=== PATIENT | female | born 1965 | race Caucasian/White ===

== ENCOUNTER → 2018-09-25 | Outpatient (CLI) | payer MEDICARE, MEDICAID ==
[~2018-09-25] MED LIST: REGADENOSON 0.4 MG/5 ML DISP.SYRIN. IV ONE
--- NOTE | 2018-09-25 11:20 | CARD ---
MR#: [id number] Date of Study: 09/25/2018 Ordering Physician: ANIA ROMERO, Referring Physician: ANIA ROMERO Tech: Vannessa Wang RDCS APPROVED REPORT EXAM: Two-dimensional and M-mode echocardiogram with Doppler and color Doppler. Other Information Quality : Good INDICATION Aortic Valve Disease History of CVA Surgery/Intervention Status/Post Aortic Valve Replacement: Mechanical Date: 2010 2D DIMENSIONS RVDd2.8 (2.9-3.5cm)Left Atrium(2D)3.8 (1.6-4.0cm) IVSd1.0 (0.7-1.1cm)Aortic Root(2D)2.3 (2.0-3.7cm) LVDd4.6 (3.9-5.9cm)LVOT Diameter2.0 (1.8-2.4cm) PWd0.9 (0.7-1.1cm)LVDs2.4 (2.5-4.0cm) FS (%) 30.0 %SV77.3 ml LVEF(%)60.0 (>50%) Aortic Valve AoV Peak Will.270.2cm/sAoV VTI66.6cm AO Peak GR.29.2mmHgLVOT Peak Will.143.5cm/s AO Mean GR.17mmHgAVA (VMAX)1.74cm2 SABA (VTI)2.50bf4RS P 1/2 Bmnf270sl Mitral Valve MV E Uwgkskmm377.9cm/sMV DECEL FPKV457cd MV A Swhelewm94.9cm/sE/A Ratio1.8 Tricuspid Valve TR P. Shpztwdo208br/sRAP LVDDYBUX3loLh TR Peak Gr.41qaWgQWCG85uuGv Pulmonary Vein S1 Dyexducx14.9cm/sD2 Cufdyyct27.7cm/s LEFT VENTRICLE The left ventricle is normal size. There is normal left ventricular wall thickness. The left ventricu lar systolic function is normal. The Ejection Fraction is 55-60%. There is normal LV segmental wall m otion. Transmitral Doppler flow pattern is Grade II-pseudonormal filling dynamics. RIGHT VENTRICLE The right ventricle is normal size. The right ventricular systolic function is normal. ATRIA The left atrium size is normal. The right atrium size is normal. The interatrial septum is intact wit h no evidence for an atrial septal defect or patent foramen ovale as noted on 2-D or Doppler imaging. AORTIC VALVE The aortic valve is not well visualized. Doppler and Color Flow revealed mild aortic regurgitation. C alculated aortic valve area is 2.0 cm2 with maximum pressure gradient of 29 mmHg and mean pressure gr adient of 17 mmHg. There is a mechanical aortic valve prosthesis. MITRAL VALVE The mitral valve is calcified but opens well. There is no evidence of mitral valve prolapse. There is no mitral valve stenosis. Doppler and Color-flow revealed mild mitral regurgitation. TRICUSPID VALVE The tricuspid valve is normal in structure and function. Doppler and Color Flow revealed trace tricus pid regurgitation. There is mild pulmonary hypertension. The PA pressure was estimated at 34 mmHg. Th ere is no tricuspid valve stenosis. PULMONIC VALVE The pulmonic valve is not well visualized. Doppler and Color Flow revealed trace to mild pulmonic adilson vular regurgitation. There is no pulmonic valvular stenosis. GREAT VESSELS The aortic root is normal in size. The ascending aorta is not well seen. The IVC is normal in size an d collapses >50% with inspiration. PERICARDIAL EFFUSION There is no evidence of significant pericardial effusion. Critical Notification Critical Value: No <Conclusion> The left ventricular systolic function is normal. The Ejection Fraction is 55-60%. There is normal LV segmental wall motion. Transmitral Doppler flow pattern is Grade II-pseudonormal filling dynamics. Mechanical aortic valve prosthesis appears well seated and functioning well. Mean pressure gradient o f 17 mmHg. Mild aortic regurgitation. Mild mitral regurgitation. Trace tricuspid regurgitation. The PA pressure was estimated at 34 mmHg. There is no evidence of significant pericardial effusion. Signed by : Ania Romero, Electronically Approved : 09/25/2018 11:19:47
--- NOTE | 2018-09-25 13:54 | RAD ---
MR#: [id number] Date of Study: 09/25/2018 Ordering Physician: ANIA ROMERO Referring Physician: REFUGIO GOMEZ Tech: RT Darren Shah) (N) APPROVED REPORT Test Type: Pharmacological Stress Nurse/Tech: Shayy Alston R.N. Test Indications: Aortic valve repair-[facility] Cardiac History: valve repair,htn,murmur,CVA Medications: See Electronic Medical Record Medical History: See Electronic Medical Record Resting ECG: SB w/bbb. Resting Heart Rate: 45 bpm Resting Blood Pressure: 105/43mmHg Pretest Chest Pain: No chest pain Nurse/Tech Notes S1S2, has loud click from valve replacement and faint murmur Consent: The procedure was explained to the patient in lay terms. Informed consent was witnessed. John eout was entered into [employer]. History and Stress Test performed by RT Darren Shah) (N) Pharm. Details Pharmacologic stress testing was performed using 0.4mg per 5ml of regadenoson given intravenously ove r 7-10 seconds. Stress Symptoms slight SOB POST EXERCISE Reason for Termination: Infusion complete Max HR: 68 bpm Max Blood Pressure: 105/36mmHg Blood Pressure response to exercise: b/p up and down repeatedly Heart Rate response to exercise: wnl Chest Pain: No. Arrhythmia: No. ST Change: No. INTERPRETATION Stress EKG Conclusion: Baseline EKG showed sinus rhythm. No ischemic changes at peak stress. No arr hythmias. Imaging Protocol IMAGE PROTOCOL: Rest Tc-99m/stress Tc-99m 1 day Rest: Stress: Viability: Radiopharm.Tc99m NqlxpiavjYw27s Sestamibi Fayy79iZb 33mCi Duration 15min. 15min. Img Date 09/25/2018 09/25/2018 Inj-Img Hswu27lpk. 60min. Rest Admin Site:IV - Right HandAdministrator:RT Darren Shah)(N) Stress Admin Site: IV - Right HandAdministrator: KANCHAN Edwards STRESS DATA End Diast. Vol.102.0mlLVEDV index BSA51.0ml End Syst. Vol.23.0mlLVESV index BSA12.0ml Myocardial Wyly553.0gEject. Xmwlxhfw13.0% Stress Scores Regional WT0.00Summed WT0.00 Regional WM0.00Summed WM0.00 Study quality was good. Left Ventricular size was Normal at Rest and Stress. Lung uptake was . Left Ventricular ejection fraction is 77%. The rest and stress images show normal perfusion, normal contraction and thickening. LV Perf. Quant 17 Seg. SSS1.00 17 Seg. SRS0.00 17 Seg. SDS1.00 Stress Defect Extent (% LAD)0.00Rest Defect Extent (% LAD)0.00Rev. Defect Extent (% LAD)0.00 Stress Defect Extent (% LCX) 0.00Rest Defect Extent (% LCX)0.00Rev. Defect Extent (% LCX)0.00 Stress Defect Extent (% RCA)0.00Rest Defect Extent (% RCA)0.00Rev. Defect Extent (% RCA)0.00 Stress Defect Extent (% VICENTA)0.00Rest Defect Extent (% VICENTA)0.00Rev. Defect Extent (% VICENTA)0.00 Conclusion 1. Regadenoson cardioisotope stress test did not show any evidence of ischemia or infarct. 2. Normal left ventricular systolic function with ejection fraction calculated at 77%. 3. Low risk for cardiac events. Signed by : Ania Romero, Electronically Approved : 09/25/2018 13:54:27
== END | disposition home or self-care (01) ==
LOC: NM 09:13
PROVIDERS: ATTEND Internal Medicine Cardiovascular Disease
DX: I08.8 Other rheumatic multiple valve diseases (principal); I10 Essential (primary) hypertension; Z95.4 Presence of other heart-valve replacement; Z86.73 Personal history of transient ischemic attack (TIA), and cerebral infarction without residual deficits; I27.20 Pulmonary hypertension, unspecified
CPT/HCPCS: 78452; 93017; 93306; A9500; J2785

== ENCOUNTER → 2020-10-01 | Outpatient (CLI) | payer MEDICARE, MEDICAID ==
[2020-04-07 10:38] VITALS: BP 116/40
[~2020-10-01] MED LIST changes: +ATOR40TA59 PO; +BUDE10.2 IH; +BUSP15TA PO; +CYCL10TA2 PO; +METO-239 PO; -REGADENOSON 0.4 MG/5 ML DISP.SYRIN. IV ONE; +SERT-268 PO; +TRAZ-123 PO; +VENTOLIN HFA18 GM INH
--- NOTE | 2020-10-01 17:22 | KCIC ---
EXAM: LEFT SHOULDER 3 VIEWS. HISTORY: Left shoulder pain, fall. COMPARISON: None. FINDINGS: No fractures are identified. Glenohumeral joint spaces and alignment are maintained. Acromi oclavicular osteoarthritis is mild for patient age. Tiny inferiorly directed clavicular spurs measure <2 mm. There are changes of median sternotomy and aortic valve repair. A 1.7 cm calcification projecting ove r the left axilla may be a calcified lymph node, versus a calcified left breast fibroadenoma. IMPRESSION: 1. Mild left acromioclavicular osteoarthritis. Electronically signed by: Randee Briscoe MD (10/01/2020 5:20 PM) [id number]
== END ==
LOC: KCIC 13:58
PROVIDERS: ATTEND Internal Medicine
DX: M19.012 Primary osteoarthritis, left shoulder (principal)
CPT/HCPCS: 73030

== ENCOUNTER 2021-04-25 15:34 | Inpatient (IN) | payer MEDICARE, MEDICAID ==
[~2021-04-25] VITALS: Ht 175.3 cm; Wt 91.6 kg
[~2021-04-25 15:34] MED LIST changes: +CYCL10TA19 PO; -CYCL10TA2 PO
[2021-04-25] MEDS ORDERED: HYDROcodone/APAP 5/325MG 1 TAB TABLET PO ONE (19:00)
[2021-04-25] MEDS ORDERED: DIPHTH,PERTUSS(ACELL),TET TOX 0.5 ML DISP.SYRIN. VAX IM ONE (19:00)
[2021-04-25 19:36] LABS: BASO % 1 % (0-3); EOS % 0 % (0-3); HEMATOCRIT 42.3 % (36.0-47.0); LYMPH # 1.3 x10^3/uL (1.0-4.8); LYMPH % 17 % (24-48); MEAN CORPUSCULAR HEMOGLOBIN 28 pg (25-35); MEAN CORPUSCULAR HGB CONC 33 g/dL (31-37); MEAN CORPUSCULAR VOLUME 84 fL (79-100); MONO # 0.4 x10^3/uL (0.0-1.1); MONO % 6 % (0-9); NEUT # 5.7 x10^3/uL (1.8-7.7); NEUT % 76 % (31-73); PLATELET COUNT 174 x10^3/uL (140-400); RED BLOOD COUNT 5.05 x10^6/uL (3.50-5.40); RED CELL DISTRIBUTION WIDTH 14.1 % (11.5-14.5); WHITE BLOOD COUNT 7.5 x10^3/uL (4.0-11.0)
[2021-04-25 19:53] LABS: CALCIUM 9.4 mg/dL (8.5-10.1); CREATININE 1.4 mg/dL (0.6-1.0); GFR 38.8; POTASSIUM 4.2 mmol/L (3.5-5.1)
[2021-04-25 20:00] LABS: ACETAMIN < 2.0 mcg/ml (10-30); ETHANOL < 10 mg/dL (0-10); SALIC 2.5 mg/dL (2.8-20.0)
[2021-04-25 20:01] LABS: ALBUMIN/GLOBULIN RATIO 1.4 (1.0-1.7); TOTAL BILIRUBIN 0.4 mg/dL (0.2-1.0); TOTAL PROTEIN 6.9 g/dL (6.4-8.2)
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
[2021-04-25 21:03] LABS: BILIRUBIN,URINE NEGATIVE (NEG); CLARITY,URINE CLEAR; COLOR,URINE YELLOW; NITRITE,URINE NEGATIVE (NEG); PROTEIN,URINE NEGATIVE (NEG-TRACE); UROBILINOGEN,URINE 0.2 mg/dL (0.2 mg/dL)
[2021-04-25 21:04] LABS: BARBITURATES NEG (NEG); BENZODIAZEPINES NEG (NEG); CANNABINOIDS POS (NEG); COCAINE NEG (NEG); HYALINE CASTS, URINE FEW /HPF; METHADONE NEG (NEG); OPIATES NEG (NEG); PHENCYCLIDINE NEG (NEG)
[2021-04-25 21:05] LABS: BACTERIA,URINE 0 /HPF (0-FEW); WBC,URINE 20-40 /HPF (0-4)
[2021-04-25 21:08] LABS: AMPHETAMINE/METHAMPHETAMINE NEG (NEG)
[2021-04-25] MEDS ORDERED: ONDANSETRON PF 4 MG/2 ML VIAL. IVP PRN (22:15)
[2021-04-25] MEDS ORDERED: ACETAMINOPHEN 325 MG TABLET. PO PRN (22:15)
[2021-04-25 23:44] LABS: PROTHROMBIN TIME PATIENT 36.5 SEC (11.7-14.0)
[2021-04-26] VITALS (7 sets, daily range): BP systolic 90–125; BP diastolic 40–54
[2021-04-26 00:21] LABS: INFLUENZA A PATIENT NEGATIVE (NEGATIVE); INFLUENZA B PATIENT NEGATIVE (NEGATIVE)
[2021-04-26] MEDS: MORPHINE SULFATE 4 MG/ML INJ. IVP PRN ×4 (00:29→21:37)
[2021-04-26] MEDS ORDERED: WARF6TAB47 PO (00:44)
[2021-04-26 05:51] LABS: CALCIUM 8.7 mg/dL (8.5-10.1); CREATININE 1.3 mg/dL (0.6-1.0); GFR 42.2; POTASSIUM 4.1 mmol/L (3.5-5.1)
[2021-04-26 06:58] LABS: BASO % 1 % (0-3); EOS # 0.1 x10^3/uL (0.0-0.7); EOS % 3 % (0-3); HEMATOCRIT 38.5 % (36.0-47.0); HEMOGLOBIN 12.6 g/dL (12.0-15.5); LYMPH # 1.5 x10^3/uL (1.0-4.8); LYMPH % 30 % (24-48); MEAN CORPUSCULAR HEMOGLOBIN 28 pg (25-35); MEAN CORPUSCULAR HGB CONC 33 g/dL (31-37); MEAN CORPUSCULAR VOLUME 85 fL (79-100); MONO # 0.5 x10^3/uL (0.0-1.1); MONO % 10 % (0-9); NEUT # 2.9 x10^3/uL (1.8-7.7); NEUT % 57 % (31-73); PLATELET COUNT 147 x10^3/uL (140-400); RED BLOOD COUNT 4.51 x10^6/uL (3.50-5.40); RED CELL DISTRIBUTION WIDTH 14.1 % (11.5-14.5)
[2021-04-26] MEDS: busPIRone 5 MG TABLET. PO SCH ×2 (08:27→21:33)
[2021-04-26] MEDS: SERTRALINE 50 MG TABLET. PO SCH (08:27)
[2021-04-26] MEDS: METOPROLOL SUCC 24HR ER 25 MG TAB.ER.24H. PO SCH (08:28)
--- NOTE | 2021-04-26 08:34 | PDOC ---
Provider Note Date of Service: DATE: 04/26/21 TIME: 08:34 Provider Note dictated Justifications for Admission Other Justification FRANKIE WARNER MD Apr 26, 2021 08:34
[2021-04-26] MEDS ORDERED: NON FORMULARY ITEM (Albuterol Sulfate (Ventolin Hfa Inhaler) 2 PUFF) INH SCH (09:00)
[2021-04-26] MEDS: ARIPiprazole 2 MG TABLET PO SCH (09:00)
[2021-04-26] MEDS ORDERED: NON FORMULARY ITEM (Budesonide/Formoterol Fumarate (Symbicort 160-4.5 Mcg Inhaler) 2 PUFF) IH SCH (09:00)
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
[2021-04-26] MEDS: ALBUTEROL SULFATE 2.5 MG/3 ML NEBU. NEB SCH ×3 (11:29→21:03)
[2021-04-26] MEDS: CYCLOBENZAPRINE 10 MG TABLET. PO PRN ×2 (14:55→21:33)
--- NOTE | 2021-04-26 17:00 | EKG ---
[facility] [address] [place] [address] Test Date: 2021-04-26 Test Time: 16:51:59 Pat Name: KAYLYNN FERRARO Department: Room: [facility] Gender: F Servomechanism Assembler: : 1965 Requested By: FRANKIE WARNER Order Number: [id number] Reading MD: Oscar Baker Measurements Intervals [place] Rate: 74 P: -84 AL: 168 QRS: 23 QRSD: 128 T: -4 QT: 416 QTc: 467 Interpretive Statements SINUS RHYTHM RIGHT BUNDLE BRANCH BLOCK Electronically Signed On 04-28-2021 8:33:33 ENROBER TENDER by Oscar Baker
[2021-04-26] MEDS: BUDESONIDE 0.5 MG/2 ML NEBU. NEB SCH (21:03)
[2021-04-26] MEDS: traZODone 100 MG TABLET. PO SCH (21:33)
[2021-04-27 03:00] VITALS: BP 97/50
[2021-04-27] MEDS: BUDESONIDE 0.5 MG/2 ML NEBU. NEB SCH ×2 (07:13→20:11)
[2021-04-27] MEDS: ALBUTEROL SULFATE 2.5 MG/3 ML NEBU. NEB SCH ×4 (07:13→20:11)
[2021-04-27 07:59] VITALS: BP 109/38
[2021-04-27] MEDS: METOPROLOL SUCC 24HR ER 25 MG TAB.ER.24H. PO SCH (08:02)
[2021-04-27] MEDS: busPIRone 5 MG TABLET. PO SCH ×2 (08:04→20:56)
[2021-04-27] MEDS: SERTRALINE 50 MG TABLET. PO SCH (08:05)
[2021-04-27] MEDS: CYCLOBENZAPRINE 10 MG TABLET. PO PRN ×2 (08:05→15:37)
[2021-04-27] MEDS: ARIPiprazole 2 MG TABLET PO SCH (08:05)
--- NOTE | 2021-04-27 08:26 | PDOC ---
Provider Note Date of Service: DATE: 04/27/21 TIME: 08:25 Provider Note status same, placement pending- resume warf re high inr, abilify added Justifications for Admission Other Justification FRANKIE WARNER MD Apr 27, 2021 08:26
[2021-04-27] MEDS ORDERED: WARFARIN SODIUM 6 MG PO SCH (09:00)
[2021-04-27 09:05] LABS: PROTHROMBIN TIME PATIENT 33.6 SEC (11.7-14.0)
[2021-04-27 15:07] VITALS: BP 110/52
[2021-04-27 19:00] VITALS: BP 93/36
[2021-04-27] MEDS: traZODone 100 MG TABLET. PO SCH (20:56)
[2021-04-28 03:00] VITALS: BP 107/31
[2021-04-28 03:48] LABS: PROTHROMBIN TIME PATIENT 21.9 SEC (11.7-14.0)
[2021-04-28 07:00] VITALS: BP 100/30
--- NOTE | 2021-04-28 07:52 | PDOC ---
Provider Note Date of Service: DATE: 04/28/21 TIME: 07:51 Provider Note status same pending transfer- inr 1.9 so more warfarin Justifications for Admission Other Justification FRANKIE WARNER MD Apr 28, 2021 07:51
[2021-04-28] MEDS ORDERED: ALBUTEROL SULFATE 2.5 MG/3 ML NEBU. NEB PRN (08:00)
[2021-04-28] MEDS: busPIRone 5 MG TABLET. PO SCH ×2 (08:45→20:49)
[2021-04-28] MEDS: SERTRALINE 50 MG TABLET. PO SCH (08:45)
[2021-04-28] MEDS: ARIPiprazole 2 MG TABLET PO SCH (08:45)
[2021-04-28] MEDS: METOPROLOL SUCC 24HR ER 25 MG TAB.ER.24H. PO SCH (08:47)
[2021-04-28 11:00] VITALS: BP 114/45
[2021-04-28 13:01] LABS: CALCIUM 8.5 mg/dL (8.5-10.1); CREATININE 1.4 mg/dL (0.6-1.0); GFR 38.8; POTASSIUM 4.3 mmol/L (3.5-5.1)
[2021-04-28 13:08] LABS: BASO % 1 % (0-3); EOS # 0.1 x10^3/uL (0.0-0.7); EOS % 4 % (0-3); HEMATOCRIT 38.8 % (36.0-47.0); HEMOGLOBIN 12.4 g/dL (12.0-15.5); LYMPH # 1.4 x10^3/uL (1.0-4.8); LYMPH % 33 % (24-48); MEAN CORPUSCULAR HEMOGLOBIN 28 pg (25-35); MEAN CORPUSCULAR HGB CONC 32 g/dL (31-37); MEAN CORPUSCULAR VOLUME 87 fL (79-100); MONO # 0.3 x10^3/uL (0.0-1.1); MONO % 7 % (0-9); NEUT # 2.4 x10^3/uL (1.8-7.7); NEUT % 56 % (31-73); PLATELET COUNT 139 x10^3/uL (140-400); RED BLOOD COUNT 4.47 x10^6/uL (3.50-5.40); RED CELL DISTRIBUTION WIDTH 14.6 % (11.5-14.5); WHITE BLOOD COUNT 4.3 x10^3/uL (4.0-11.0)
[2021-04-28 15:45] VITALS: BP 89/52
[2021-04-28] MEDS ORDERED: WARFARIN 3 MG TABLET. PO ONE (16:00)
[2021-04-28] MEDS: CYCLOBENZAPRINE 10 MG TABLET. PO PRN ×2 (16:04→21:19)
[2021-04-28 19:00] VITALS: BP 115/51
[2021-04-28] MEDS: traZODone 100 MG TABLET. PO SCH (20:49)
[2021-04-29 03:09] VITALS: BP 110/44
[2021-04-29 07:35] VITALS: BP 129/51
--- NOTE | 2021-04-29 08:51 | PDOC ---
Provider Note Date of Service: DATE: 04/29/21 TIME: 08:50 Provider Note [id number] Justifications for Admission Other Justification FRANKIE WARNER MD Apr 29, 2021 08:51
[2021-04-29 09:49] LABS: PROTHROMBIN TIME PATIENT 15.2 SEC (11.7-14.0)
[2021-04-29] MEDS: ARIPiprazole 2 MG TABLET PO SCH (10:43)
[2021-04-29] MEDS: busPIRone 5 MG TABLET. PO SCH (10:43)
[2021-04-29] MEDS: SERTRALINE 50 MG TABLET. PO SCH (10:45)
[2021-04-29] MEDS: METOPROLOL SUCC 24HR ER 25 MG TAB.ER.24H. PO SCH (10:47)
[2021-04-29 11:00] VITALS: BP 152/74
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
[2021-04-29] MEDS ORDERED: WARFARIN 3 MG TABLET. PO SCH (16:00)
== END 2021-04-29 11:53 | DRG 125 ==
LOC: ER 15:34 → 4 NORTH 22:20
PROVIDERS: ADMIT Family Medicine; ATTEND Family Medicine
DX: S05.12XA Contusion of eyeball and orbital tissues, left eye, initial encounter (principal); R45.851 Suicidal ideations; E78.00 Pure hypercholesterolemia, unspecified; F32.A Depression, unspecified; I10 Essential (primary) hypertension; Y09 Assault by unspecified means; Z59.00 Homelessness unspecified; Z86.73 Personal history of transient ischemic attack (TIA), and cerebral infarction without residual deficits; Z87.891 Personal history of nicotine dependence; Z95.2 Presence of prosthetic heart valve; Y93.89 Activity, other specified; Y92.89 Other specified places as the place of occurrence of the external cause; Y99.8 Other external cause status
CPT/HCPCS: 36415; 70450; 70486; 80048; 80053; 80307; 80329; 81001; 85025; 85610; 85730; 87086; 87428; 90471; 90715; 93005; 94640; 94760; 96374; G0480; J2270; J2405; U0003; 99285-25; G0378; J7613; J7626